=== PATIENT | male | born 1980 | race Caucasian/White ===

== ENCOUNTER 2019-08-22 15:42 | Emergency (ER) | payer OTHER ==
[2019-08-22] MEDS ORDERED: Ondansetron INJ* 2 MG/ML VIAL IV ONE (15:56)
[2019-08-22] MEDS ORDERED: Morphine 4 MG/ML VIAL (1 ml) 4 MG/ML VIAL IV ONE (15:56)
--- NOTE | 2019-08-22 15:57 | ED ---
Adult Trauma - HPI Summary HPI Summary: This patient is a 38 year old M presenting to ED with a chief complaint of fall at 1100 this morning. Patient was going down the front steps of his house when he slipped and fell down 3-4 steps. Patients back and right thigh hit the ground first. Reporting throbbing pain to back and leg. Patient reports a mild abrasion to the right forearm as well. Did not hit head/pass out. He took Flexeril 10mg, Acetaminophen 975mg, and Motrin 800mg. The patient rates the pain 6/10 in severity. Symptoms aggravated by movement. Symptoms alleviated by nothing. Not on blood thinners. - History of Current Complaint Chief Complaint: EDFall Stated Complaint: FALL- LOWER BACK PAIN PER EMS Time Seen by Provider: 08/22/19 15:44 Hx Obtained From: Patient Mechanism of Injury: Fall Onset/Duration: Started Hours Ago - 1100, Traumatic, Still Present Onset of Pain: Immediate Onset Severity: Moderate Current Severity: Moderate Pain Intensity: 6 Location: Back, Other - Right thigh Aggravating Factor(s): Nothing Alleviating Factor(s): Nothing - Allergy/Home Medications Allergies/Adverse Reactions: Allergies Allergy/AdvReac Type Severity Reaction Status Date / Time No Known Allergies Allergy Verified 08/22/19 16:49 PMH/Surg Hx/FS Hx/Imm Hx Endocrine/Hematology History: Denies: Hx Diabetes Cardiovascular History: Denies: Hx Hypercholesterolemia, Hx Hypertension Musculoskeletal History: Reports: Hx Back Problems Sensory History: Denies: Hx Legally Blind, Hx Deafness Opthamlomology History: Denies: Hx Legally Blind EENT History: Denies: Hx Deafness - Cancer History Cancer Type, Location and Year: Thyroid Date and Location of Last Treatment: 2016 partial thyroidectomy - Surgical History Surgery Procedure, Year, and Place: 2017 partial thyroidectomy Infectious Disease History: No Infectious Disease History: Denies: Traveled Outside the [place] in Last 30 Days - Family History Known Family History: Positive: Cardiac Disease, Hypertension, Diabetes - Social History Alcohol Use: Occasionally Hx Substance Use: No Substance Use Type: Reports: None Hx Tobacco Use: No Smoking Status (MU): Never Smoked Tobacco Review of Systems Musculoskeletal: Other - Low back and right thigh pain Skin: Other - Right forearm abrasion All Other Systems Reviewed And Are Negative: Yes Physical Exam - Summary Physical Exam Summary: Constitutional: Well-developed, Well-nourished, Alert, Cooperative Skin: abrasion elbow, [id number] area abrasions to the right flank HENT: Normocephalic, atraumatic. Eyes: EOM normal, PERRL Neck: Trachea is midline. No stridor; No JVD; No step off; No posterior cervical spine tenderness Cardio: Rhythm regular, rate normal Heart sounds normal; Intact distal pulses; The pedal pulses are 2+ and symmetric. Radial pulses are 2+ and symmetric. Pulmonary/Chest wall: Effort normal; Breath sounds normal; Equal chest rise; No flail segment; No rib tenderness; No sternal tenderness Abd: Soft, Appearance normal. No distension; No tenderness Musculoskeletal: Tenderness to the right flank and right proximal femur, no ttp R elbow. No joint swelling; No vertebral body tenderness; R sided TL paraspinal tenderness; No step off or deformity of the spine Neuro: Alert, Oriented x3, GCS 15. Strength 5/5 all extremities. Psych: Mood and affect Normal Triage Information Reviewed: Yes Vital Signs On Initial Exam: Initial Vitals Temp Pulse Resp BP Pulse Ox 98.5 F 90 16 146/99 99 08/22/19 15:44 08/22/19 15:44 08/22/19 15:44 08/22/19 15:44 08/22/19 15:44 Vital Signs Reviewed: Yes Procedures - Sedation Patient Received Moderate/Deep Sedation with Procedure: No Diagnostics - Vital Signs Vital Signs Temp Pulse Resp BP Pulse Ox 08/22/19 15:46 98.5 F 83 18 150/101 100 08/22/19 15:44 98.5 F 90 16 146/99 99 - Laboratory Result Diagrams: 08/22/19 16:03 08/22/19 16:03 Lab Statement: Any lab studies that have been ordered have been reviewed, and results considered in the medical decision making process. - Radiology R femur XR Radiology Interpretation Completed By: Radiologist Summary of Radiographic Findings: No fracture of the femur is noted. Dr. Mckenzie has reviewed this radiology report. L-spine XR Radiology Interpretation Completed By: Radiologist Summary of Radiographic Findings: No fracture of the lumbar spine is noted. Dr. Mckenzie has reviewed this radiology report. Pelvis XR Radiology Interpretation Completed By: Radiologist Summary of Radiographic Findings: No fracture of the pelvis or right hip is noted. Dr. Mckenzie has reviewed this radiology report. T-spine XR Radiology Interpretation Completed By: Radiologist Summary of Radiographic Findings: No fracture of the thoracic spine is noted. Dr. Mckenzie has reviewed this radiology report. Re-Evaluation - Re-Evaluation First Eval Re-Evaluation Time: 17:50 Change: Improved - XR neg, ambulated. Given pain medications. Return for worsening symptoms. Adult Trauma Course/Dx - Course Course Of Treatment: 38 y/o male p/w R flank pain after fall. - PE abrasions to R flank, paraspinal TL tenderness. R hip/thigh tenderness. Strength 5/5. - check plain films on back, R leg. UA w/o gross hematuria. Labs unremarkable. Given pain medications. - Diagnoses Provider Diagnoses: Flank pain, Fall Discharge ED - Sign-Out/Discharge Documenting (check all that apply): Patient Departure - Discharge - Discharge Plan Condition: Stable Disposition: HOME Patient Education Materials: Flank Pain (ED) Referrals: Michael Pagan MD [Primary Care Provider] - Additional Instructions: You have been seen in the Emergency Department for a traumatic injury. We have evaluated you and have determined that you are stable to go home and follow up outpatient. When people are injured, it is common to have pain reach the worst it will be up to 24-48 hours after the injury. This means you may hurt worse when you get home. We recommend taking acetaminophen (Tylenol) to help with pain or ibuprofen (Motrin) to help with pain and swelling. You can take 500mg tylenol every 8 hours or 600mg motrin every 8 hours. It is normal to take these medications every 8 hours as needed for several days. Please return to the emergency department for trouble breathing, chest pain, nausea, vomiting, abdominal pain, confusion, severe headaches, new weakness or numbness or if you are concerned. This means when you leave the department, you are responsible for following up on any appointments that were discussed. We think it is important that you call and schedule an appointment to see your primary care doctor. It was pleasure taking care of you today. - Billing Disposition and Condition Condition: STABLE Disposition: Home - Attestation Statements Document Initiated by Scribe: Yes Documenting Scribe: Clemente Galvan Provider For Whom Scribe is Documenting (Include Credential): Melvin Mckenzie MD Scribe Attestation: I, Clemente Galvan, scribed for Melvin Mckenzie MD on 08/22/19 at 1912. Scribe Documentation Reviewed: Yes Provider Attestation: The documentation as recorded by the scribe, Clemente Galvan accurately reflects the service I personally performed and the decisions made by me, Melvin Mckenzie MD Status of Scribe Document: Viewed
[2019-08-22 16:12] LABS: ABS Lymphocytes 1.4 10^3/ul (1.0-4.8); ABS Monocytes 0.4 10^3/ul (0-0.8); ABS Neutrophils 10.8 10^3/ul (1.5-7.7); Eosinophil % 0.3 %; Hematocrit 44 % (42-52); Lymphocyte % 11.2 %; Mean Corpuscular HGB Conc 36 g/dL (31-36); Mean Corpuscular Hemoglobin 32 pg (27-31); Mean Corpuscular Volume 89 fL (80-94); Mean Platelet Volume 7.2 fL (7.4-10.4); Platelet Count 230 10^3/uL (150-450); Red Blood Count 4.99 10^6 /uL (4.18-5.48); Red Cell Distribution Width 13 % (10-15); White Blood Count 12.7 10^3/uL (3.5-10.8)
[2019-08-22 16:29] LABS: Albumin 4.2 g/dL (3.2-5.2); Albumin/Globulin Ratio 1.6 (1-3); BUN/Creatinine Ratio 8.6 (8-20); Calcium 9.3 mg/dL (8.6-10.3); EGFR African American 84.4 (>60); EGFR Non-African American 69.7 (>60); Globulin 2.7 g/dL (2-4); Potassium 3.5 mmol/L (3.5-5.0); Total Bilirubin 0.6 mg/dL (0.2-1.0); Total Protein 6.9 g/dL (6.4-8.9)
[2019-08-22 18:25] VITALS: BP 137/87
== END 2019-08-22 18:27 | disposition home or self-care (01) ==
LOC: EDBD → ED 15:42
DX: R10.31 Right lower quadrant pain (principal); W10.9XXA Fall (on) (from) unspecified stairs and steps, initial encounter; Y92.009 Unspecified place in unspecified non-institutional (private) residence as the place of occurrence of the external cause
CPT/HCPCS: 36415; 72070; 72100; 72170; 80053; 85025; 96374; 96375; 99282; J2270; J2405

== ENCOUNTER 2021-10-05 08:19 | Observation (INO) ==
[2021-10-05] MEDS ORDERED: Ondansetron 4 mg VIAL 2 MG/ML 2 ml VIAL IV ONE (08:39)
[2021-10-05] MEDS ORDERED: Lactated Ringers 1000 ml BAG 1,000 ML IV ONE ×2 (08:40→09:55)
[2021-10-05 09:12] LABS: ABS Eosinophils 0.2 10^3/ul (0-0.6); ABS Lymphocytes 1.7 10^3/ul (1.0-4.8); ABS Monocytes 0.4 10^3/ul (0-0.8); ABS Neutrophils 4.8 10^3/ul (1.5-7.7); Eosinophil % 2.9 %; Hematocrit 45 % (42-52); Hemoglobin 15.9 g/dL (14.0-18.0); Lymphocyte % 23.6 %; Mean Corpuscular HGB Conc 35 g/dL (31-36); Mean Corpuscular Hemoglobin 31 pg (27-31); Mean Corpuscular Volume 88 fL (80-94); Mean Platelet Volume 6.9 fL (7.4-10.4); Nucleated Red Blood Cells % 0.1; Platelet Count 235 10^3/uL (150-450); Red Blood Count 5.11 10^6 /uL (4.18-5.48); Red Cell Distribution Width 13 % (10-15); White Blood Count 7.2 10^3/uL (3.5-10.8)
[2021-10-05 09:30] LABS: Albumin 4.6 g/dL (3.2-5.2); Albumin/Globulin Ratio 1.8 (1-3); Calcium 8.8 mg/dL (8.6-10.3); Globulin 2.6 g/dL (2-4); Potassium 3.7 mmol/L (3.5-5.0); Total Bilirubin 0.6 mg/dL (0.2-1.0); Total Protein 7.2 g/dL (6.4-8.9); eGFR CKD-EPI 81.5 (>60)
[2021-10-05] MEDS ORDERED: Morphine 4 MG/ML VIAL (1 ml) IV ONE (09:46)
[2021-10-05 11:30] LABS: Urine Appearance Cloudy; Urine Bilirubin Negative (Negative); Urine Blood 3+ (Negative); Urine Color Yellow; Urine Glucose Negative (Negative); Urine Ketones Negative (Negative); Urine Nitrite Negative (Negative); Urine Protein Negative (Negative); Urine Specific Gravity 1.016 (1.002-1.030); Urine Urobilinogen Negative (Negative)
[2021-10-05 11:36] LABS: Urine Bacteria Absent (Absent); Urine Red Blood Cell 3+(>10/hpf) (Absent); Urine White Blood Cell Trace(0-5/hpf) (Absent)
[2021-10-05] MEDS ORDERED: Albuterol HFA INHALER 8 gm MDI INH PRN (13:51)
[2021-10-05] MEDS ORDERED: Morphine 2 MG/ML SYRINGE IV PRN (13:52)
[2021-10-05] MEDS ORDERED: Ondansetron 4 mg VIAL 2 MG/ML 2 ml VIAL IV PRN (13:53)
[2021-10-06] MEDS ORDERED: NS 0.9% 1000 ml BAG 1,000 ML IV SCH (04:00)
[2021-10-06 06:44] LABS: ABS Eosinophils 0.3 10^3/ul (0-0.6); ABS Lymphocytes 1.9 10^3/ul (1.0-4.8); ABS Monocytes 0.6 10^3/ul (0-0.8); ABS Neutrophils 4.5 10^3/ul (1.5-7.7); Hematocrit 42 % (42-52); Hemoglobin 14.9 g/dL (14.0-18.0); Lymphocyte % 25.8 %; Mean Corpuscular HGB Conc 35 g/dL (31-36); Mean Corpuscular Hemoglobin 31 pg (27-31); Mean Corpuscular Volume 89 fL (80-94); Mean Platelet Volume 7.1 fL (7.4-10.4); Platelet Count 230 10^3/uL (150-450); Red Blood Count 4.77 10^6 /uL (4.18-5.48); Red Cell Distribution Width 13 % (10-15); White Blood Count 7.3 10^3/uL (3.5-10.8)
[2021-10-06 06:58] LABS: Calcium 8.6 mg/dL (8.6-10.3); Potassium 3.9 mmol/L (3.5-5.0); eGFR CKD-EPI 86.9 (>60)
[2021-10-06] MEDS ORDERED: cefTRIAXone 2 GM ADDV.VIAL ONE (11:53)
[2021-10-06] MEDS ORDERED: Midazolam 2 mg/2 ml VIAL 1 mg/ml 2 ml VIAL (2 mg) ONE (12:11)
[2021-10-06] MEDS ORDERED: fentaNYL 100 mcg/2 ml 50 MCG/ML VIAL ONE ×2 (12:11→12:17)
[2021-10-06] MEDS ORDERED: EPHEDrine (Pressors) 50 MG/ML VIAL ONE (12:17)
[2021-10-06] MEDS ORDERED: Dexamethasone IV 4 MG/ML VIAL 1 ml VIAL ONE (12:17)
[2021-10-06] MEDS ORDERED: Ondansetron 4 mg VIAL 2 MG/ML 2 ml VIAL ONE (12:17)
[2021-10-06] MEDS ORDERED: Phenylephrine 40 mcg/mL 10mL (400mcg) SYRINGE ONE (12:17)
[2021-10-06] MEDS ORDERED: Iohexol 180 (CONTRAST) 10 ML SDV IV ONE (12:29)
[2021-10-06] MEDS ORDERED: Ketamine HCL 50 mg/ml 10 ml VIAL (500 MG) ONE (13:18)
[2021-10-06] MEDS ORDERED: Acetaminophen IV 1 GM/100ML 100 ML IV PRN (14:09)
[2021-10-06] MEDS ORDERED: DiMENhydriNATE IV 50 mg/ml 1 ml VIAL IV PUSH PRN (14:09)
[2021-10-06] MEDS ORDERED: Naloxone 0.4 mg VIAL 0.4 mg/ml 1 ml VIAL IV PRN (14:09)
[2021-10-06] MEDS ORDERED: HYDROmorphone 1 MG/1 ML SYRINGE IV PRN (14:09)
[2021-10-06] MEDS ORDERED: Ondansetron 4 mg VIAL 2 MG/ML 2 ml VIAL IV PRN (14:09)
[2021-10-06] MEDS ORDERED: fentaNYL 100 mcg/2 ml 50 MCG/ML VIAL IV PRN (14:09)
[2021-10-07 11:20] VITALS: BP 145/93
== END 2021-10-07 12:00 | disposition home or self-care (01) ==
LOC: ED 08:19 → EDHOLD 08:19 → MED 15:44
PROVIDERS: ADMIT Hospitalist; ATTEND Hospitalist